=== PATIENT | male | born 1995 | race Caucasian/White ===

== ENCOUNTER 2017-05-15 23:13 | Emergency (ER) | payer SELFPAY ==
[2017-05-15 23:28] VITALS: BP 140/90; BMI 22.7
[2017-05-16] MEDS ORDERED: ROCEPHIN VIAL 1 GM IM ONE (00:48)
[2017-05-16] MEDS ORDERED: MOTRIN TAB 800 MG PO STA (00:49)
[2017-05-16] MEDS ORDERED: BACTRIM DS TAB PO ONE ×2 (00:49→00:54)
[2017-05-16] MEDS ORDERED: LEVAQUIN TAB 500 MG ONE (00:54)
[2017-05-16] MEDS ORDERED: MOTRIN TAB 800 MG PO ONE (00:54)
--- NOTE | 2017-05-16 00:54 | DR.GENAD ---
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 States he has a smaller lesion on his right hand with pain and swelling today. State he has been having fever, chills and thick drainage from his right arm. States he had has last tetanus shot two years ago. States he has had staph before but it never swollen like this. states he does not have a local doctor. States he started wheezing today but denies cold, cough or chest pain. Chief Complaint:: POSTERIOR RIGHT FOREARM WITH ABSCESS, EDEMA, RED, DRAINING. - Nurses notes reviewed Nurses Notes Review: Yes - Source History Provided: Patient - Mode of Arrival Mode of Arrival: Ambulatory - Timing Onset of Chief Complaint: 05/14/17 Came on: Gradually - Duration Duration: Constant How lon Duration: Days - Location Location: right arm swelling with purulent drainage; right hand - Severity Severity: Moderate - Modifying Factors Worsens:: nothing Improves:: nothing PMH - PMH Past Medical History: No Past Surgical History: No - Family History History of Family Medical Conditions: No - Social History Type of Tobacco Use: None Alcohol Use: None Do you use any recreational Drugs:: No Lives With: Friend Lives Where: Home - infectious screening Have you traveled outside the country in the last 6 months?: No Isolation: Standard ROS - Review of Systems Constitutional: No Symptoms Reported, Fever. negative: See HPI, Chills, Diaphoresis, Malaise, Weakness, Irritable, Fatigue, Loss of Appetite, Other Eyes: No Symptoms Reported ENTM: No Symptoms Reported, Nose Discharge, Nose Congestion. negative: See HPI , Ear Pain, Ear Discharge, Pulling on Ears, Hearing Loss, Nose Pain, Epistaxis, Mouth Pain, Mouth Swelling, Loose Teeth, Drooling, Throat Pain, Throat Swelling , Ear Foreign Body Respiratoy: No Symptoms Reported, Non-Productive Cough, Wheezing. negative: See HPI, Productive Cough, Moist Cough, Dry Cough, Hacking Cough, Barking Cough , Brassy Cough, Orthopnea, Short of Breath, Stridor, Hemoptysis, Other Cardiovascular: No Symptoms Reported. negative: See HPI, Chest Pain, Edema, Palpitations, Syncope, Cyanosis, Skin Mottling, Other Gastrointestinal/Abdominal: No Symptoms Reported. negative: See HPI, Abdominal Pain, Constipation, Diarrhea, Nausea, Vomiting, Food Intolerance, Other Genitourinary: No Symptoms Reported. negative: See HPI, Discharge, Dysuria, Frequency, Hematuria, Pain, Bleeding, Other Neurological: No Symptoms Reported. negative: See HPI, Anxiety, Depressed, Emotional Problems, Headache, Numbness, Paresthesia, Pre-existing Deficit, Seizure, Tingling, Tremors, Weakness, Dizziness, Problems Walking, Speech Problem, Other Musculoskeletal: No Symptoms Reported, Right, Arm (6 cm erythema with purulent drainage from center) Integumentary: Change in Color, Lesions, Wound. negative: No Symptoms Reported , See HPI, Change in Hair/Nails, Dryness, Lumps, Rash, Itching, Bruises, Juandice, Other Hematologic/Lymphatic: No Symptoms Reported. negative: See HPI, Anemia, Blood Clots, Easy Bleeding, Easy Bruising, Swollen Glands, Lymphadenopathy, Other Endocrine: No Symptoms Reported. negative: See HPI, Excessive Sweating, Flushing, Intolerance to Cold, Intolerance to Heat, Increased Hunger, Increased Thirst, Increased Urine, Unexplained Weight Gain, Unexplained Weight Loss, Failure to Thrive, Decreased Appetite, Other Psychiatric: No Symptoms Reported. negative: See HPI, Anxiety, Depression, Hallucinations, Excessive crying, Suicidal, Other PE - Vital Signs Vitals: Temperature 98.0 F Pulse Rate 99 Respiratory Rate 18 Blood Pressure 140/90 O2 Sat by Pulse Oximetry 100 - General Limitations: No Limitations General Appearance: Alert, In Distress (mild) - Head Head Exam: Normal Inspection, Atraumatic, Normocephalic - Eyes Eye exam: Normal Appearance, PERRL, EOMI. negative: Scleral Icterus, Conjunctival Injection, Nystagmus, Miosis, Mydrasis, Periorbital Swelling, Periorbital Tenderness, Other - ENT ENT Exam: Normal Exam, Normal Oropharynx, Normal External Ear Exam, Mucous Membranes Moist, TM's Normal Bilaterally (mouth with crusty lesion left corner of the mouth with honey cone color) External Ear Exam: Normal External Inspection TM/Canal Exam: Bilateral Normal Nose Exam: Normal Nose Exam Mouth Exam: Normal Inspection. negative: Drooling, Trismus, Lip Swelling, Tongue Elevation, Tongue Swelling, Laceration, Other Throat Exam: Normal Inspection. negative: Tonsillar Erythema, Tonsillomegaly, Tonsillar Exudate, R Peritonsillar Mass, L Peritonsillar Mass, Muffled Voice, Other - Neck Neck Exam: Normal Inspection, Full ROM, Trachea Midline. negative: Tenderness, Meningismus, Lymphadenopathy, Thyromegaly, Other - Chest Chest Inspection: Normal Inspection, Symmetric Chest Wall Rise. negative: Tenderness, Rash, Abscess, Other - Respiratory Respiratory Exam: Normal Lung Sounds Bilat, Prolonged Expiratory Phase (diffuse rhonchi). negative: Accessory Muscle Use, Chest Wall Tenderness, Respiratory Distress, Stridor, Other Respiratory Exam: Bilateral Wheezing, Bilateral Decreased Breath Sounds - Cardiovascular Cardiovascular Exam: Regular Rate, Normal Rhythm, Normal Heart Sounds - Abdominal Exam Abdominal Exam: Normal Inspection, Normal Bowel Sounds, Soft. negative: Distention, Tenderness, Guarding, Rebound, Rigidity, Dimnished Bowel Sounds, Hyperactive Bowel Sounds, Hypoactive Bowel Sounds, Organomegaly, Trauma, Incision, Ascites, Mass, Bruit, Pulsatile Mass, Hernia, Other Abdominal Tenderness: negative: RUQ, RLQ, LUQ, LLQ, Epigastrium, Suprapubic, Diffuse, Mild, Moderate, Severe, Other - Extremities Extremities Exam: Normal Inspection, Full ROM, Tenderness (right forearm with purulent drainage; 6 cm area erythema with one cm lesion in the center with purulent yellowish drainage; right hand with small ulceration with erythema), Normal Capillary Refill. negative: Edema, Joint Swelling, Calf Tenderness - Back Back Exam: Normal Inspection, Full ROM, Tenderness. negative: (R) CVA Tenderness, (L) CVA Tenderness, Muscle Spasm, Paraspinal Tenderness, Vertebral Tenderness, Rashes, (R) Sciatic Notch Tenderness, (L) Sciatic Notch Tendern, (R ) Straight Leg Raise, (L) Straight Leg Raise, Other - Neurologic Neurological Exam: Alert, Oriented X3, CN II-XII Intact, Normal Gait, Reflexes Normal - Psychiatric Psychiatric Exam: Normal Affect, Normal Mood - Skin Skin Exam: Warm, Dry, Intact, Normal Color, Erythema (right forearm with erthermatous lesion with drainage.) - Diagnosis Discharge Problem: Right forearm cellulitis, Impetigo, Bronchospasm, acute - Discharge Plan Disposition: HOME, SELF-CARE Condition: Stable Prescriptions: Cephalexin [KEFLEX CAP 500 MG *] 500 mg PO TID #30 cap Ibuprofen [MOTRIN TAB 800 MG *] 800 mg PO Q8H PRN #30 tab PRN Reason: Pain/Inflammation Sulfamethoxazole-Trimethoprim [BACTRIM DS TAB 800/160 MG *] 1 tab PO BID #20 tab - Follow ups/Referrals Follow ups/Referrals: NFD,None [Primary Care Provider] - 3 days Gorge Monsivais [STAFF PHYSICIAN] - 3 days ISSAC GARCIA [STAFF PHYSICIAN] - 3 days - Instructions Instructions: Cellulitis, Adult, [id number], Abscess, [id number], Impetigo , Adult
[2017-05-16] MEDS ORDERED: XYLOCAINE 1 % (PLAIN) ONE (00:55)
[2017-05-16] MEDS ORDERED: ROCEPHIN VIAL 1 GM ONE (00:55)
[2017-05-16] MEDS ORDERED: DUONEB 0.5 MG/3 MG NEB ONE (00:55)
[2017-05-16] MEDS ORDERED: LEVAQUIN TAB 500 MG PO SCH (01:00)
[2017-05-16] MEDS ORDERED: DUONEB 0.5 MG/3 MG ONE (01:18)
== END 2017-05-16 01:47 | disposition home or self-care (01) ==
LOC: ER 23:13
DX: J98.01 Acute bronchospasm (principal); L03.113 Cellulitis of right upper limb; L01.00 Impetigo, unspecified
CPT/HCPCS: 87070; 87075; 87077; 87186; 87205; 96372; 99282; J0696; J2001; J7620